=== PATIENT | male | born 1985 | race Hispanic/Latino ===

== ENCOUNTER 2016-12-22 15:54 | Emergency (ER) | payer OTHER ==
[~2016-12-22] VITALS: Ht 165.1 cm; Wt 68.9 kg
[~2016-12-22 15:54] MED LIST: CIPRO500 M1 PO; ENDOCET 325 MG-1 TA1 PO; FLEXERIL10 MG PO; NAPROXEN500 MG PO; PERCOCET 5-3251 EACH PO
--- NOTE | 2016-12-22 16:28 | ED GI/GU/ABDOMINAL COMPLAINT ---
History of Present Illness General Chief Complaint: Abdominal Pain/Flank Pain Stated Complaint: RT FLANK PAIN Source: patient, old records Exam Limitations: no limitations Vital Signs & Intake/Output Vital Signs & Intake/Output Vital Signs Date Time Temp Pulse Resp B/P Pulse O2 O2 Flow FiO2 Ox Delivery Rate 12/22 1811 78 16 111/64 98 Room Air 12/22 1606 98.4 75 18 135/77 97 Room Air Allergies Coded Allergies: NO KNOWN ALLERGIES (02/21/15) Reconcile Medications Ibuprofen 800 MG TABLET 1 TAB PO Q8 PRN PAIN Triage Note: PT TO TRIAGE WITH C/O INTERMITTENT RLQ ABD PAIN 12/16 x2DAYS, PT DENIES N/V/D, LAST BM YESTERDAY WNL, DENIES URINARY S/S. VSS. HX KIDNEY STONES,HERNIA. Triage Nurses Notes Reviewed? yes HPI: Patient is a 31-year-old male presents complaining of right lower abdominal pain palpation. Pain feels different than previous kidney stone pain. Patient has not taken any medication for his symptoms. Patient denies fevers, chills, nausea, vomiting, dysuria, hematuria. (ROBERTO CARLOS TENORIO) Past History Travel History Traveled to [place] past 21 day No Medical History Any Pertinent Medical History? 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 No (ROBERTO CARLOS TENORIO) Review of Systems Review of Systems Constitutional: Denies: chills, fever. EENTM: Reports: no symptoms. Respiratory: Denies: cough, short of breath. Cardiovascular: Denies: chest pain. GI: Reports: see HPI. Genitourinary: Denies: dysuria, frequency, hematuria, pain. Musculoskeletal: Reports: no symptoms. Skin: Reports: no symptoms. Neurological/Psychological: Reports: no symptoms. Hematologic/Endocrine: Reports: no symptoms. Immunologic/Allergic: Reports: no symptoms. (ROBERTO CARLOS TENORIO) Physical Exam Physical Exam General Appearance: well developed/nourished, alert, awake Head: atraumatic, normal appearance Eyes: Bilateral: normal appearance, PERRL, EOMI. Ears, Nose, Throat, Mouth: hearing grossly normal, moist mucous membrane Neck: normal inspection, supple, full range of motion Respiratory: normal breath sounds, chest non-tender, no respiratory distress, lungs clear Cardiovascular: regular rate/rhythm Gastrointestinal: normal bowel sounds, soft, RIGHT LOWER QUADRANT TENDERNESS. nEGATIVE Lira SIGN Back: normal inspection, normal range of motion, no vertebral tenderness, NO cva TENDERNESS Extremities: normal range of motion Neurologic/Psych: no motor/sensory deficits, awake, alert, oriented x 3, normal gait, normal mood/affect Skin: intact, normal color, warm/dry Core Measures ACS in differential dx? No Severe Sepsis Present: No Septic Shock Present: No (GRECIA REYES,ROBERTO CARLOS) Progress Differential Diagnosis: appendicitis, renal colic, urinary tract infection, pyelonephritis, muscle strain, hernia, small bowel obstruction, testicular torsion, orchitis, epididymitis Plan of Care: Orders Procedure Date/time Status COMPREHENSIVE METABOLIC PANEL 12/22 1617 Complete CBC WITHOUT DIFFERENTIAL 12/22 1617 Complete URINALYSIS 12/22 1604 Complete Laboratory Tests 12/22/16 1625: Urinalysis MOD H, Urine Color YEL, Urine Clarity CLEAR, Urine pH 7.0, Ur Specific [place] 1.020, Urine Protein TRACE H, Urine Ketones TRACE H, Urine Nitrite NEG, Urine Bilirubin NEG, Urine Urobilinogen 0.2, Ur Leukocyte Esterase NEG, Ur Microscopic SEDIMENT EXAMINED, Urine RBC RARE, Ur Epithelial Cells RARE, Urine Bacteria FEW H, Urine Mucus FEW, Urine Hemoglobin NEG, Urine Glucose NEG 12/22/16 1623: Anion Gap 14, Estimated GFR > 60, BUN/Creatinine Ratio 15.7, Glucose 117 H, Calcium 9.8, Total Bilirubin 0.4, AST 28, ALT 52, Alkaline Phosphatase 95, Total Protein 7.8, Albumin 4.4, Globulin 3.4, Albumin/Globulin Ratio 1.3, CBC w Diff NO MAN DIFF REQ, RBC 4.64 L, MCV 94.2 H, MCH 31.9 H, RDW 13.1, MPV 8.1, Gran % 50.7, Lymphocytes % 37.0, Monocytes % 8.0, Eosinophils % 3.3, Basophils % 1.0, Absolute Granulocytes 4.2, Absolute Lymphocytes 3.1, Absolute Monocytes 0.7 H, Absolute Eosinophils 0.3, Absolute Basophils 0.1, PUBS MCHC 33.8 Patient declined pain medication on initial exam. 12/22/2016 6:06:43 PM: Results of labs and CT scan discussed with patient. Discussed that given the CT scan was IV contrast a small kidney stone could be obscured. No hematuria, patient resting comfortably. Lower suspicion acute renal colic. No signs of significant infection. Patient appears stable for discharge and outpatient follow-up. (GRECIA REYES,ROBERTO CARLOS) Diagnostic Imaging: Viewed by Me: CT Scan. Discussed w/RAD: CT Scan. Radiology Impression: PATIENT: HORTENCIA MCNEILL PRESENT AGE: 31 PATIENT ACCOUNT NO: [id number] : 85 LOCATION: [facility] ORDERING PHYSICIAN: ROBERTO CARLOS REYES SERVICE DATE: 12/22/16 EXAM TYPE: CAT - CT ABD & PELVIS W IV CONTRAST EXAMINATION: CT ABDOMEN AND PELVIS WITH CONTRAST CLINICAL INFORMATION: Right lower quadrant abdominal pain COMPARISON: 04/16/2016 CT scan abdomen and pelvis TECHNIQUE: Multidetector volumetric imaging was performed of the abdomen and pelvis before and after the IV administration of 94 mL of Optiray 320 intravenous contrast. Sagittal and coronal reformatted images were obtained on the technologist's workstation. DLP: 266.97 mGy-cm FINDINGS: LUNG BASES: The visualized lung bases are unremarkable. LIVER, GALLBLADDER, AND BILIARY TREE: The liver is normal in size, shape, and attenuation. No focal hepatic lesion or biliary ductal dilatation is present. The gallbladder is partially contracted. No calcified gallstones seen. PANCREAS: Unremarkable. SPLEEN: Unremarkable. ADRENAL GLANDS: Unremarkable. KIDNEYS AND URETERS: The kidneys are normal in size, shape, and attenuation. No hydronephrosis, hydroureter. No renal stones is seen, (contrast enhanced images of the kidneys lower the sensitivity of this exam for evaluation of small nonobstructing renal stones). No perinephric stranding. BLADDER: The urinary bladder is partially full and unremarkable. GASTROINTESTINAL TRACT: The small and large bowel are unremarkable. The appendix is visualized and without CT evidence of acute appendicitis. The lumen of the appendix contains air and the wall thickness and the diameter of the appendix are within normal limits.. ABDOMINAL WALL: Diastases of the rectus abdominis muscle without hernia. LYMPH NODES: Normal. VASCULAR: Unremarkable. PELVIC VISCERA: The prostate and seminal vesicles are unremarkable. OSSEOUS STRUCTURES: Unremarkable. IMPRESSION: There is no acute intra-abdominal findings to explain patient's right lower quadrant pain. No urinary stones seen on the contrast enhanced images. No CT evidence of acute appendicitis. DICTATED BY: GERALDINE FELIPE MD DATE/TIME DICTATED:12/22/161743 AV SPECIALIST:AYDEE DATE/TIME TRANSCRIBED:12/22/161743 CONFIDENTIAL, DO NOT COPY WITHOUT APPROPRIATE AUTHORIZATION. <Electronically signed in Other Vendor System> SIGNED BY: GERALDINE FELIPE MD 12/22/161755 Initial ED EKG: none (ROBERTO CARLOS TENORIO) Departure Departure Time of Disposition: 1801 Disposition: HOME OR SELF CARE Condition: Stable Clinical Impression Primary Impression: Right sided abdominal pain Referrals: JONY ANDERSON,MARK (PCP/Family) Additional Instructions: Apply heat to the area for 10-20 minutes 4-5 times a day. Follow up with your doctor if no improvement by tomorrow. Call in the morning for appointment. Return to the ER if fevers, unable to stay hydrated or worsening of symptoms. Departure Forms: Customer Survey General Discharge Information Prescriptions: Current Visit Scripts Ibuprofen 1 TAB PO Q8 PRN PAIN #20 TAB (ROBERTO CARLOS TENORIO) PA/COMMUNICATIONS FIELD TECHNICIAN Co-Sign Statement Statement: ED Attending supervision documentation- [] I saw and evaluated the patient. I have also reviewed all the pertinent lab results and diagnostic results. I agree with the findings and the plan of care as documented in the PA's/COMMUNICATIONS FIELD TECHNICIAN's documentation. [X] I have reviewed the ED Record and agree with the PA's/COMMUNICATIONS FIELD TECHNICIAN's documentation. [] Additions or exceptions (if any) to the PAs/COMMUNICATIONS FIELD TECHNICIAN's note and plan are summarized below: [] (JAY ANDERSON,AYANA Wick)
[2016-12-22 16:33] LABS: ABSOLUTE BASOPHIL COUNT 0.1 /CUMM (0.0-0.2); ABSOLUTE EOSINOPHIL COUNT 0.3 /CUMM (0.0-0.7); ABSOLUTE GRANULOCYTE CT 4.2 /CUMM (1.4-6.5); ABSOLUTE LYMPH COUNT 3.1 /CUMM (1.2-3.4); ABSOLUTE MONOCYTE COUNT 0.7 /CUMM (0.10-0.60); EOSINOPHIL % 3.3 % (0-5); GRANULOCYTE % 50.7 % (42.2-75.2); HEMATOCRIT 43.7 % (42-52); MEAN CORPUSCULAR HGB 31.9 PG (27.0-31.0); MEAN CORPUSCULAR HGB CONC 33.8 G/DL (33.0-37.0); MEAN CORPUSCULAR VOLUME 94.2 FL (80.0-94.0); MEAN PLATELET VOLUME 8.1 FL (7.4-10.4); PLATELET COUNT 218 /CUMM (130-400); RBC DISTRIBUTION WIDTH 13.1 % (11.5-14.5); RED BLOOD CELL CT 4.64 /CUMM (4.70-6.10); WHITE BLOOD CELL COUNT 8.4 /CUMM (4.8-10.8)
--- NOTE | 2016-12-22 17:56 | CT SCAN REPORT ---
EXAMINATION: CT ABDOMEN AND PELVIS WITH CONTRAST CLINICAL INFORMATION: Right lower quadrant abdominal pain COMPARISON: 04/16/2016 CT scan abdomen and pelvis TECHNIQUE: Multidetector volumetric imaging was performed of the abdomen and pelvis before and after the IV administration of 94 mL of Optiray 320 intravenous contrast. Sagittal and coronal reformatted images were obtained on the technologist's workstation. DLP: 266.97 mGy-cm FINDINGS: LUNG BASES: The visualized lung bases are unremarkable. LIVER, GALLBLADDER, AND BILIARY TREE: The liver is normal in size, shape, and attenuation. No focal hepatic lesion or biliary ductal dilatation is present. The gallbladder is partially contracted. No calcified gallstones seen. PANCREAS: Unremarkable. SPLEEN: Unremarkable. ADRENAL GLANDS: Unremarkable. KIDNEYS AND URETERS: The kidneys are normal in size, shape, and attenuation. No hydronephrosis, hydroureter. No renal stones is seen, (contrast enhanced images of the kidneys lower the sensitivity of this exam for evaluation of small nonobstructing renal stones). No perinephric stranding. BLADDER: The urinary bladder is partially full and unremarkable. GASTROINTESTINAL TRACT: The small and large bowel are unremarkable. The appendix is visualized and without CT evidence of acute appendicitis. The lumen of the appendix contains air and the wall thickness and the diameter of the appendix are within normal limits.. ABDOMINAL WALL: Diastases of the rectus abdominis muscle without hernia. LYMPH NODES: Normal. VASCULAR: Unremarkable. PELVIC VISCERA: The prostate and seminal vesicles are unremarkable. OSSEOUS STRUCTURES: Unremarkable. IMPRESSION: There is no acute intra-abdominal findings to explain patient's right lower quadrant pain. No urinary stones seen on the contrast enhanced images. No CT evidence of acute appendicitis.
[2016-12-22] MEDS ORDERED: IBUPROFEN800 M1 PO (18:04)
[2016-12-22 18:11] VITALS: BP 111/64
== END 2016-12-22 18:12 ==
LOC: ERH 15:54
PROVIDERS: Physician Assistant Medical
DX: R10.31 Right lower quadrant pain (principal)
CPT/HCPCS: 74177; 81001